=== PATIENT | female | born 1935 | race Caucasian/White ===

== ENCOUNTER 2016-12-17 14:44 | Inpatient (IN) | payer MEDICAID ==
[2016-12-17 14:48] VITALS: BMI 35.4
--- NOTE | 2016-12-17 15:56 | ED PDOC ---
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 No head trauma. No chest pain. No dyspnea. No vomiting. Past Medical History - Infectious Disease Hx of Infectious Diseases: None - Tetanus Immunization Tetanus Immunization: Unknown - Reproductive Menopause: Yes - Cardiac Hx Cardiac Disorders: Yes Hx Congestive Heart Failure: Yes Hx Hypertension: Yes - Pulmonary Hx Respiratory Disorders: No - Neurological Hx Neurological Disorder: No Hx Dizziness: Yes - HEENT Hx Cataracts: Yes (l eye) - Renal Hx Renal Disorder: No - Endocrine/Metabolic Hx Diabetes Mellitus Type 2: Yes - Hematological/Oncological Hx Blood Disorders: No - Integumentary Other/Comment: ble disclored multiple blisters - Musculoskeletal/Rheumatological Hx Falls: Yes Hx Osteoporosis: Yes Hx Unsteady Gait: Yes - Gastrointestinal Hx Gastrointestinal Disorders: No - Genitourinary/Gynecological Hx Genitourinary Disorders: No - Psychiatric Hx Psychophysiologic Disorder: No Hx Substance Use: No - Past Surgical History Past Surgical History: No Previous - Surgical History Other/Comment: endoscopy - Anesthesia Hx Anesthesia: No Hx Anesthesia Reactions: No Hx Malignant Hyperthermia: No - Suicidal Assessment Feels Threatened In Home Enviroment: No Family/Social History - Physician Review Nursing Documentation Reviewed: Yes Family/Social History: Unknown Family HX Smoking Status: Never Smoked Hx Alcohol Use: No Hx Substance Use: No Hx Substance Use Treatment: No Allergies/Home Meds Allergies/Adverse Reactions: Allergies No Known Allergies Allergy (Verified 10/19/13 19:43) Review of Systems - Physician Review All systems were reviewed & negative as marked: Yes - Review of Systems Constitutional: Fatigue Respiratory: absent: SOB Cardiovascular: absent: Chest Pain Gastrointestinal: absent: Abdominal Pain Neurological: Dizziness. absent: Headache Physical Exam Vital Signs Temp Pulse Resp BP Pulse Ox 12/17/16 15:30 98.5 F 66 18 123/74 96 Temperature: Afebrile Blood Pressure: Normal Pulse: Regular Respiratory Rate: Normal Appearance: Positive for: Well-Appearing, Non-Toxic, Uncomfortable, Other (Obese ) Pain Distress: Moderate Mental Status: Positive for: other (Awake alert and cooperative) - Systems Exam Head: Present: Atraumatic, Normocephalic Pupils: Present: PERRL Extroacular Muscles: Present: EOMI Conjunctiva: Present: Normal Mouth: Present: Moist Mucous Membranes Pharnyx: No: ERYTHEMA, EXUDATE, TONSILS ENLARGED Neck: Present: Normal Range of Motion. No: MIDLINE TENDERNESS, Paraspinal Tenderness Respiratory/Chest: Present: Clear to Auscultation, Good Air Exchange, Decreased Breath Sounds. No: Respiratory Distress, Accessory Muscle Use Cardiovascular: Present: Regular Rate and Rhythm, Normal S1, S2. No: Murmurs Abdomen: Present: Normal Bowel Sounds. No: Tenderness, Distention, Peritoneal Signs, Rebound, Guarding Back: Present: Normal Inspection. No: Midline Tenderness, Paraspinal Tenderness Upper Extremity: Present: NORMAL PULSES, Tenderness, Swelling, Neurovascularly Intact, Other (Right elbow pain and tenderness and limited range of motion with swelling). No: Normal ROM, Erythema, Deformity Lower Extremity: Present: Normal Inspection. No: Edema Neurological: Present: GCS=15, CN II-XII Intact, Speech Normal, Motor Func Grossly Intact Skin: Present: Warm, Dry, Normal Color. No: Rashes Medical Decision Making ED Course and Treatment: 12/17/16 17:09 EKG shows normal sinus rhythm rate approximately [address] or T-wave changes 12/17/16 17:[address]El Moreno who requested CT scan of the elbow and he will be in to see the patient later. CT Right Upper Extremity Without Intravenous Contrast, Elbow FINDINGS: Bones/joints: There is a comminuted fracture of the distal humerus, with involvement of the capitellum, the lateral epicondyle, medial epicondyle, and trochlea. Fractures are also visualized of the coronoid process of the ulna and radial head. An olecranon spur is visualized. There is displacement of fracture fragments involving the distal humerus. No dislocation. Soft tissues: There is soft tissue swelling posterior to the elbow. IMPRESSION: 1. There is a comminuted fracture of the distal humerus, with involvement of the capitellum, the lateral epicondyle, medial epicondyle, and trochlea. Fractures are also visualized of the coronoid process of the ulna and radial head. 2. Additional findings described above. Dictated and Authenticated by: Jm Houston MD 12/17/2016 8:09 PM Eastern Time ([place] & [place]) - Lab Interpretations Lab Results: 12/17/16 16:46 12/17/16 16:46 Lab Results 12/17/16 16:54: Urine Color Yellow, Urine Appearance Clear, Urine pH 7.0, Ur Specific [place] <= 1.005, Urine Protein Negative, Urine Glucose (UA) >=1000, Urine Ketones Negative, Urine Blood Negative, Urine Nitrate Negative, Urine Bilirubin Negative, Urine Urobilinogen 0.2, Ur Leukocyte Esterase Negative 12/17/16 16:46: Sodium 138, Potassium 3.4 L, Chloride 99, Carbon Dioxide 30, Anion Gap 12, BUN 17, Creatinine 0.8, Est GFR ( Amer) > 60, Est GFR (Non- Af Amer) > 60, Random Glucose 168 H, Calcium 9.2, Phosphorus 4.1, Magnesium 2.2 , Total Bilirubin 0.9, AST 29, ALT 27, Alkaline Phosphatase 105, Lactate Dehydrogenase 466, Total Creatine Kinase 78, Troponin I < 0.01, Total Protein 7.6, Albumin 3.8, Globulin 3.8, Albumin/Globulin Ratio 1.0 L 12/17/16 16:46: PT 10.4, INR 0.96, APTT 25.9 12/17/16 16:46: WBC 9.2 D, RBC 4.75, Hgb 13.0, Hct 39.9, MCV 84.0, MCH 27.4, MCHC 32.6, RDW 16.5 H, Plt Count 229, MPV 9.0, Gran % 74.6 H, Lymph % (Auto) 18.8 L, [place] % (Auto) 6.0, Eos % (Auto) 0.4 L, Baso % (Auto) 0.2, Gran # 6.85 H , Lymph # 1.7, [place] # 0.6, Eos # 0.0, Baso # 0.02 - RAD Interpretation Radiology Orders: 12/17/16 15:56 HEAD W/O CONTRAST [CT] Stat 12/17/16 15:57 ELBOW RIGHT 3 VIEWS ROUTINE [RAD] Stat 12/17/16 15:58 CHEST ONE VIEW [RAD] Stat - Medication Orders Current Medication Orders: Sodium Chloride (Sodium Chloride 0.9%) 1,000 mls @ 75 mls/hr IV .[id number] FILIBERTO Pantoprazole Sodium (Protonix Ec Tab) 40 mg PO ACB FILIBERTO Discontinued Medications Morphine Sulfate (Morphine) 4 mg IVP STAT STA Stop: 12/17/16 15:59 Last Admin: 12/17/16 16:48 Dose: 4 mg Ondansetron HCl (Zofran Inj) 4 mg IVP ONCE ONE Stop: 12/17/16 15:59 Last Admin: 12/17/16 16:49 Dose: 4 mg Disposition/Present on Arrival - Present on Arrival Any Indicators Present on Arrival: No History of DVT/PE: No History of Uncontrolled Diabetes: Yes Urinary Catheter: No History of Decub. Ulcer: No History Surgical Site Infection Following: None - Disposition Have Diagnosis and Disposition been Completed?: Yes Diagnosis: Dizziness, Syncope, Supracondylar fracture of humerus Disposition: HOSPITALIZED Disposition Time: 17:42 Patient Plan: Admission, Telemetry Patient Problems: Current Active Problems Problem Status Onset Dizziness Acute Supracondylar fracture of humerus Acute Syncope Acute Condition: FAIR
[2016-12-17] MEDS ORDERED: Morphine 4 mg/ml ISec IVP STA (15:58)
[2016-12-17 17:15] LABS: BASO # 0.02 K/mm3 (0.0-2.0); BASO % 0.2 % (0.0-3.0); EOS % 0.4 % (1.5-5.0); GRAN # 6.85 (1.4-6.5); GRAN % 74.6 % (50.0-68.0); LYMPH # 1.7 (1.2-3.4); LYMPH % 18.8 % (22.0-35.0); MEAN CORPUSCULAR HEMOGLOBIN 27.4 pg (25.0-35.0); MEAN CORPUSCULAR HGB CONC 32.6 g/dl (31.0-37.0); MONO # 0.6 (0.1-0.6); PLATELET COUNT 229 10^3/uL (120.0-450.0); RBC 4.75 10^6/uL (3.5-6.1); RED CELL DISTRIBUTION WIDTH 16.5 % (11.5-14.5); WHITE BLOOD COUNT 9.2 10^3/ul (4.5-11.0)
[2016-12-17 17:26] LABS: INR 0.96 (0.93-1.08); PARTIAL THROMBOPLASTIN TIME 25.9 Seconds (23.7-30.8); PROTHROMBIN TIME 10.4 Seconds (9.9-11.8)
[2016-12-17 17:27] LABS: URINE APPEARANCE CLEAR (CLEAR); URINE BILIRUBIN NEGATIVE (NEGATIVE); URINE BLOOD NEGATIVE (NEGATIVE); URINE COLOR YELLOW (YELLOW); URINE GLUCOSE (UA) >=1000 mg/dL (NEGATIVE); URINE LEUKOCYTE ESTERASE NEGATIVE Leu/uL (NEGATIVE); URINE NITRATE NEGATIVE (NEGATIVE); URINE PROTEIN NEGATIVE mg/dL (<30 mg/dL); URINE UROBILINOGEN 0.2 E.U./dL (<1 E.U./dL)
--- NOTE | 2016-12-17 17:35 | CT ---
PROCEDURE: CT HEAD WITHOUT CONTRAST. HISTORY: dizzy COMPARISON: Noncontrast head CT performed 05/31/16 TECHNIQUE: Axial computed tomography images were obtained through the head/brain without intravenous contrast. Radiation dose: Total exam DLP = 765.19 mGy-cm. This CT exam was performed using one or more of the following dose reduction techniques: Automated exposure control, adjustment of the mA and/or kV according to patient size, and/or use of iterative reconstruction technique. FINDINGS: HEMORRHAGE: No intracranial hemorrhage. BRAIN: No mass effect or edema. 6 mm hypodensity in the right cerebellum, favored to reflect chronic lacunar infarct. Mild scattered periventricular and subcortical white matter hypodensities, which are nonspecific, but often seen with chronic microvascular ischemic disease. Please note that MRI with diffusion imaging is more sensitive in the detection of acute ischemic event. VENTRICLES: No hydrocephalus. CALVARIUM: Unremarkable. PARANASAL SINUSES: Unremarkable as visualized. No significant inflammatory changes. MASTOID AIR CELLS: Unremarkable as visualized. No inflammatory changes. OTHER FINDINGS: None. IMPRESSION: Generalized atrophy. Nonspecific white matter changes. 6 mm hypodensity within the right cerebellum, favored to reflect chronic lacunar infarct.
[2016-12-17 17:44] LABS: ALBUMIN 3.8 g/dL (3.0-4.8); ALT/SGPT 27 U/L (7-56); AST/SGOT 29 U/L (15-39); BLOOD UREA NITROGEN 17 mg/dL (7-21); CALCIUM 9.2 mg/dL (8.4-10.5); GFR AFRICAN-AMERICAN > 60; GFR NON-AFRICAN AMERICAN > 60; MAGNESIUM 2.2 mg/dL (1.7-2.2)
[2016-12-17 17:59] LABS: TROPONIN I < 0.01 ng/mL
--- NOTE | 2016-12-17 18:49 | CP.PCM.HP ---
<Javier Dhillon - Last Filed: 12/18/16 06:11> History of Present Illness - History of Present Illness History of Present Illness: Patient is a 81 year old German only speaking female with a PMHx of CHF, pulmonary hypertension, hypertension, hyperlipidemia, diabetes, and osteoporosis who presents to the ED for evaluation of feeling dizzy and a subsequent fall onto her right arm. Language line was used to communicate with patient. She states that she felt dizziness this AM when ambulating with her walker and subsequently fell onto her right arm. She denies LOC or trauma to the head. Admits that she has experienced dizziness in the past but has never lead to a fall. Currently feels dizzy with associated nausea. Also admits to associated dull pain localized to the right upper extremity. Denies fever, chills, chest pain, SOB, abdominal pain, vomiting, diarrhea, constipation, and urinary symptoms. PMHx: CHF, pulmonary hypertension, hypertension, hyperlipidemia, diabetes, and osteoporosis PSHx: none Social Hx: denies ETOH use, tobacco use, and illicit drug use Allergies: none Family Hx: noncontributory Medications: Please see med rec Present on Admission - Present on Admission Any Indicators Present on Admission: No Review of Systems - Review of Systems Review of Systems: Please see HPI Past Patient History - Infectious Disease Hx of Infectious Diseases: None - Tetanus Immunizations Tetanus Immunization: Unknown - Past Social History Smoking Status: Never Smoked - CARDIAC Hx Cardiac Disorders: Yes Hx Congestive Heart Failure: Yes Hx Hypertension: Yes - PULMONARY Hx Respiratory Disorders: No - NEUROLOGICAL Hx Neurological Disorder: No Hx Dizziness: Yes - HEENT Hx Cataracts: Yes (l eye) - RENAL Hx Chronic Kidney Disease: No - ENDOCRINE/METABOLIC Hx Diabetes Mellitus Type 2: Yes - HEMATOLOGICAL/ONCOLOGICAL Hx Blood Disorders: No - INTEGUMENTARY Other/Comment: ble disclored multiple blisters - MUSCULOSKELETAL/RHEUMATOLOGICAL Hx Falls: Yes Hx Osteoporosis: Yes Hx Unsteady Gait: Yes - GASTROINTESTINAL Hx Gastrointestinal Disorders: No - GENITOURINARY/GYNECOLOGICAL Hx Genitourinary Disorders: No - PSYCHIATRIC Hx Psychophysiologic Disorder: No Hx Substance Use: No - SURGICAL HISTORY Other/Comment: endoscopy - ANESTHESIA Hx Anesthesia: No Hx Anesthesia Reactions: No Hx Malignant Hyperthermia: No Meds Allergies/Adverse Reactions: Allergies Allergy/AdvReac Type Severity Reaction Status Date / Time No Known Allergies Allergy Verified 10/19/13 19:43 Physical Exam - Head Exam Head Exam: ATRAUMATIC, NORMAL INSPECTION - Eye Exam Eye Exam: EOMI, Normal appearance - Neck Exam Neck exam: Positive for: Normal Inspection - Respiratory Exam Respiratory Exam: Accessory Muscle Use, NORMAL BREATHING PATTERN. absent: Rales , Rhonchi, Wheezes - Cardiovascular Exam Cardiovascular Exam: REGULAR RHYTHM, +S1, +S2 - GI/Abdominal Exam GI & Abdominal Exam: Soft. absent: Distended, Guarding, Rigid, Tenderness - Extremities Exam Additional comments: mild tenderness to palpation left lower extremity - Neurological Exam Neurological exam: CN II-XII Intact, Oriented x3 Additional comments: patient is awake, alert, responds to verbal stimuli, answers questions appropriately patient is able to move left upper extremity and bilateral lower extremities past midline right upper extremity is currently in a sling is immobile - Skin Skin Exam: Normal Color, Warm Results - Vital Signs Recent Vital Signs: Last Vital Signs Temp 98.5 F 12/17/16 15:30 Pulse 66 12/17/16 15:30 Resp 18 12/17/16 15:30 BP 123/74 12/17/16 15:30 Pulse Ox 96 12/17/16 15:30 - Labs Result Diagrams: 12/17/16 16:46 12/17/16 16:46 Labs: Laboratory Results - last 24 hr 12/17/16 12/17/16 12/17/16 16:46 16:46 16:46 WBC 9.2 D RBC 4.75 Hgb 13.0 Hct 39.9 MCV 84.0 MCH 27.4 MCHC 32.6 RDW 16.5 H Plt Count 229 MPV 9.0 Gran % 74.6 H Lymph % (Auto) 18.8 L [place] % (Auto) 6.0 Eos % (Auto) 0.4 L Baso % (Auto) 0.2 Gran # 6.85 H Lymph # 1.7 [place] # 0.6 Eos # 0.0 Baso # 0.02 PT 10.4 INR 0.96 APTT 25.9 Sodium 138 Potassium 3.4 L Chloride 99 Carbon Dioxide 30 Anion Gap 12 BUN 17 Creatinine 0.8 Est GFR ( Amer) > 60 Est GFR (Non-Af Amer) > 60 Random Glucose 168 H Calcium 9.2 Phosphorus 4.1 Magnesium 2.2 Total Bilirubin 0.9 AST 29 ALT 27 Alkaline Phosphatase 105 Lactate Dehydrogenase 466 Total Creatine Kinase 78 Troponin I < 0.01 Total Protein 7.6 Albumin 3.8 Globulin 3.8 Albumin/Globulin Ratio 1.0 L Urine Color Urine Appearance Urine pH Ur Specific [place] Urine Protein Urine Glucose (UA) Urine Ketones Urine Blood Urine Nitrate Urine Bilirubin Urine Urobilinogen Ur Leukocyte Esterase 12/17/16 16:54 WBC RBC Hgb Hct MCV MCH MCHC RDW Plt Count MPV Gran % Lymph % (Auto) [place] % (Auto) Eos % (Auto) Baso % (Auto) Gran # Lymph # [place] # Eos # Baso # PT INR APTT Sodium Potassium Chloride Carbon Dioxide Anion Gap BUN Creatinine Est GFR ( Amer) Est GFR (Non-Af Amer) Random Glucose Calcium Phosphorus Magnesium Total Bilirubin AST ALT Alkaline Phosphatase Lactate Dehydrogenase Total Creatine Kinase Troponin I Total Protein Albumin Globulin Albumin/Globulin Ratio Urine Color Yellow Urine Appearance Clear Urine pH 7.0 Ur Specific [place] <= 1.005 Urine Protein Negative Urine Glucose (UA) >=1000 Urine Ketones Negative Urine Blood Negative Urine Nitrate Negative Urine Bilirubin Negative Urine Urobilinogen 0.2 Ur Leukocyte Esterase Negative Assessment & Plan - Assessment and Plan (Free Text) Assessment: Patient is a 81 year old German speaking female with a PMHx CHF, pulmonary hypertension, hypertension, hyperlipidemia, diabetes, and osteoporosis who is being admitted to the hospital for evaluation and treatment of dizziness, syncope, and supracondylar fracture of humerus. 1. Dizziness, Fall - high risk fall precautions - head CT- no intracranial hemorrhage, Generalized atrophy. Nonspecific white matter changes. 6 mm hypodensity within the right cerebellum, favored to reflect chronic lacunar infarct. - neuro checks q4 - NPO - IVF NS @ 75 2. Supracondylar fracture of the humerus - orthopedic consult - tylenol for pain managment - CT of right upper extremity ordered by ED and is read is pending at time of admit 3. Hypertension - hold home losartan - hold home lasix as patient is NPO - hold home HCTZ/bisoprol - place patient on metoprolol 25 mg PO 1 tab BID 4. Diabetes - hold home oral antidiabetic medications - accu checks ACHS - insulin sliding scale - HbA1c 5. Hyperlipidemia - lipid profile 6. Hypokalemia - replete - monitor closely via BMP 7. Hx of Diastolic CHF, pulmonary hypertension - ECHO 8. PPX - SCD - Protonix <Roosevelt Lopez P - Last Filed: 12/18/16 06:22> Results - Vital Signs Recent Vital Signs: Last Vital Signs Temp 98.2 F 12/18/16 06:00 Pulse 62 12/18/16 06:00 Resp 20 12/18/16 06:00 BP 104/59 L 12/18/16 06:00 Pulse Ox 95 12/18/16 00:01 - Labs Result Diagrams: 12/17/16 16:46 12/17/16 16:46 Attending/Attestation - Attestation I have personally seen and examined this patient.: Yes I have fully participated in the care of the patient.: Yes I have reviewed all pertinent clinical information: Yes Notes (Text): 12/18/16 06:22 81 F with h/o diastolic chf, pulm htn, , TR, type to DM on OHA fell and had closed right supracondylar fracture with intact neurovaslcular function, sp splint. Dr. Tomlin consulted in ER for the farcture. Plan Stable vitals, orthopedic eval for plan for right supracondylar faracture, currently kept NPO except meds, continue betablocker, echo as last one more then 6 months back, hold on oha as pt is npo, dvt/gi prophylaxis
--- NOTE | 2016-12-17 20:09 | CT ---
EXAM: CT Right Upper Extremity Without Intravenous Contrast, Elbow CLINICAL HISTORY: The patient age is 81 years old and is female; Injury or trauma; Fall; Initial encounter; Fracture, traumatic injury; Closed fracture; Elbow; Right; Additional info: Elbow fracture Facility exam id and description: Ct extupsr ext upper w/o contrast right TECHNIQUE: Axial computed tomography images of the right elbow without intravenous contrast. This CT exam was performed using one or more of the following dose reduction techniques: automated exposure control, adjustment of the mA and/or kV according to patient size, and/or use of iterative reconstruction technique. Coronal reformatted images were created and reviewed. EXAM DATE/TIME: 12/17/2016 5:41 PM COMPARISON: DX - ELBOW RIGHT 3 VIEWS ROUTINE 12/17/2016 5:13:33 PM FINDINGS: Bones/joints: There is a comminuted fracture of the distal humerus, with involvement of the capitellum, the lateral epicondyle, medial epicondyle, and trochlea. Fractures are also visualized of the coronoid process of the ulna and radial head. An olecranon spur is visualized. There is displacement of fracture fragments involving the distal humerus. No dislocation. Soft tissues: There is soft tissue swelling posterior to the elbow. IMPRESSION: 1. There is a comminuted fracture of the distal humerus, with involvement of the capitellum, the lateral epicondyle, medial epicondyle, and trochlea. Fractures are also visualized of the coronoid process of the ulna and radial head. 2. Additional findings described above.
[2016-12-17] MEDS ORDERED: Potassium Chloride 20 mEq ER Tab PO STA (21:34)
[2016-12-17] MEDS: Sodium Chloride 0.9% 1,000 ML IV SCH (21:54)
[2016-12-18 07:49] LABS: ALBUMIN 3.4 g/dL (3.0-4.8); ALT/SGPT 22 U/L (7-56); AST/SGOT 24 U/L (15-39); BLOOD UREA NITROGEN 16 mg/dL (7-21); CALCIUM 9.1 mg/dL (8.4-10.5); GFR AFRICAN-AMERICAN > 60; GFR NON-AFRICAN AMERICAN > 60
[2016-12-18 07:52] LABS: HDL CHOLESTEROL 37 mg/dL (29-60); LDL CHOLESTEROL 102 mg/dL (0-129)
[2016-12-18 07:53] LABS: BASO # 0.01 K/mm3 (0.0-2.0); BASO % 0.1 % (0.0-3.0); EOS # 0.1 (0.0-0.7); EOS % 1.5 % (1.5-5.0); GRAN # 4.89 (1.4-6.5); GRAN % 68.8 % (50.0-68.0); HEMOGLOBIN 12.2 gm/dL (12.0-16.0); LYMPH # 1.5 (1.2-3.4); LYMPH % 21.6 % (22.0-35.0); MEAN CELL VOLUME 85.1 fL (80.0-105.0); MEAN CORPUSCULAR HEMOGLOBIN 27.5 pg (25.0-35.0); MEAN CORPUSCULAR HGB CONC 32.3 g/dl (31.0-37.0); MONO # 0.6 (0.1-0.6); PLATELET COUNT 216 10^3/uL (120.0-450.0); RBC 4.44 10^6/uL (3.5-6.1); RED CELL DISTRIBUTION WIDTH 16.9 % (11.5-14.5); WHITE BLOOD COUNT 7.1 10^3/ul (4.5-11.0)
[2016-12-18] MEDS: Pantoprazole 40 mg EC Tab PO SCH (08:04)
--- NOTE | 2016-12-18 08:45 | RAD ---
PROCEDURE: CHEST RADIOGRAPH, 1 VIEW HISTORY: dizzy COMPARISON: 05/31/2016 FINDINGS: LUNGS: Clear. PLEURA: No pneumothorax or pleural fluid seen. CARDIOVASCULAR: Mild cardiomegaly OSSEOUS STRUCTURES: No significant abnormalities. VISUALIZED UPPER ABDOMEN: Normal. OTHER FINDINGS: None. IMPRESSION: No active disease.
--- NOTE | 2016-12-18 08:47 | RAD ---
PROCEDURE: Radiographs of the right elbow. HISTORY: trauma COMPARISON: No prior. FINDINGS: BONES: There is a comminuted displaced supracondylar fracture JOINTS: Normal. No osteoarthritis. SOFT TISSUES: Normal. JOINT EFFUSION: None. OTHER FINDINGS: None. IMPRESSION: Comminuted displaced supracondylar fracture
--- NOTE | 2016-12-18 09:25 | CP.PCM.CON ---
History of Present Illness - History of Present Illness History of Present Illness: Mrs. Alicea is an 81-year-old woman with multiple medical co-morbidities, inluding CHF, pulmonary hypertension, hypertension, hyperlipidemia, diabetes, and arthritis, who presented to the ED after suffering a fall resulting in fracture of her right arm. She states that she felt dizzy, light-headed and had a spinning sensation prior to the fall. CT scan of the head showed a chronic right cerebellar lacunar infarct. She complained of pain of her right arm, but denied current dizziness, vertigo, light-headedness, nausea, chest pain , SOB, weakness, sensory changes or other associated symptoms. Review of Systems - Review of Systems All systems: reviewed and no additional remarkable complaints except Past Patient History - Infectious Disease Hx of Infectious Diseases: None - Tetanus Immunizations Tetanus Immunization: Unknown - Past Social History Smoking Status: Never Smoked - CARDIAC Hx Cardiac Disorders: Yes Hx Congestive Heart Failure: Yes Hx Hypertension: Yes - PULMONARY Hx Respiratory Disorders: No - NEUROLOGICAL Hx Neurological Disorder: No Hx Dizziness: Yes - HEENT Hx Cataracts: Yes (l eye) - RENAL Hx Chronic Kidney Disease: No - ENDOCRINE/METABOLIC Hx Diabetes Mellitus Type 2: Yes - HEMATOLOGICAL/ONCOLOGICAL Hx Blood Disorders: No - INTEGUMENTARY Other/Comment: ble disclored multiple blisters - MUSCULOSKELETAL/RHEUMATOLOGICAL Hx Falls: Yes Hx Osteoporosis: Yes Hx Unsteady Gait: Yes - GASTROINTESTINAL Hx Gastrointestinal Disorders: No - GENITOURINARY/GYNECOLOGICAL Hx Genitourinary Disorders: No - PSYCHIATRIC Hx Psychophysiologic Disorder: No Hx Substance Use: No - SURGICAL HISTORY Other/Comment: endoscopy - ANESTHESIA Hx Anesthesia: No Hx Anesthesia Reactions: No Hx Malignant Hyperthermia: No Meds Allergies/Adverse Reactions: Allergies Allergy/AdvReac Type Severity Reaction Status Date / Time No Known Allergies Allergy Verified 10/19/13 19:43 - Medications Medications: Current Medications Acetaminophen (Tylenol 325mg Tab) 650 mg PO Q6H PRN PRN Reason: Pain, moderate (4-7) Last Admin: 12/17/16 23:45 Dose: 650 mg Sodium Chloride (Sodium Chloride 0.9%) 1,000 mls @ 75 mls/hr IV .[id number] [facility] Last Admin: 12/17/16 21:54 Dose: 75 mls/hr Metoprolol Tartrate (Lopressor) 25 mg PO BID [facility] Pantoprazole Sodium (Protonix Ec Tab) 40 mg PO ACB [facility] Last Admin: 12/18/16 08:04 Dose: 40 mg Physical Exam - Constitutional Appears: Well - Head Exam Head Exam: ATRAUMATIC, NORMAL INSPECTION, NORMOCEPHALIC - Eye Exam Eye Exam: EOMI, Normal appearance, PERRL - ENT Exam ENT Exam: Mucous Membranes Moist, Normal Exam - Neck Exam Neck exam: Positive for: Normal Inspection - Respiratory Exam Respiratory Exam: Clear to Auscultation Bilateral, NORMAL BREATHING PATTERN - Cardiovascular Exam Cardiovascular Exam: REGULAR RHYTHM, +S1, +S2 - GI/Abdominal Exam GI & Abdominal Exam: Normal Bowel Sounds, Soft. absent: Tenderness - Rectal Exam Rectal Exam: Deferred - Extremities Exam Extremities exam: Positive for: tenderness Additional comments: right arm is in a cast and immobilized - Back Exam Back exam: NORMAL INSPECTION - Neurological Exam Neurological exam: Alert, CN II-XII Intact, Oriented x3, Reflexes Normal - Expanded Neurological Exam Expanded Patient oriented to: person, place, time Cranial nerves: EOM's Intact: Normal, Facial Sensation: Normal, Gag Reflex: Normal Ataxia: No Cerebellar Function: Finger to Nose: Normal, Abnormal Right (unable to test the right side due to fracture of arm), Heel to Monet: Normal Upper motor neuron: Babinski Sign: Normal Sensory exam: Lower Extremity Light Touch: Normal, Lower Extremity Pin Prick: Normal, Upper Extremity Light Touch: Normal (right side not tested), Upper Extremity Pin Prick: Normal (right sided not tested) Neuro motor strength exam: Left Upper Extremity: 5, Right Upper Extremity: 2/1, Left Lower Extremity: 5, Right Lower Extremity: 5 DTR: Achilles Tendon Left: 2+, Achilles Tendon Right: 2+, Bicep Left: 2+, Patellar Left: 2+, Patellar Right: 2+ - Psychiatric Exam Psychiatric exam: Normal Affect, Normal Mood Results - Vital Signs Recent Vital Signs: Last Vital Signs Temp 98.2 F 12/18/16 06:00 Pulse 62 12/18/16 06:00 Resp 20 12/18/16 06:00 BP 104/59 L 12/18/16 06:00 Pulse Ox 95 12/18/16 00:01 - Labs Result Diagrams: 12/18/16 06:40 12/18/16 07:00 Labs: Laboratory Results - last 24 hr 12/18/16 12/18/1617 06:40 07:00 07:00 WBC 7.1 D RBC 4.44 Hgb 12.2 Hct 37.8 MCV 85.1 MCH 27.5 MCHC 32.3 RDW 16.9 H Plt Count 216 MPV 9.0 Gran % 68.8 H Lymph % (Auto) 21.6 L Morehouse % (Auto) 8.0 H Eos % (Auto) 1.5 Baso % (Auto) 0.1 Gran # 4.89 Lymph # 1.5 Morehouse # 0.6 Eos # 0.1 Baso # 0.01 Sodium 142 Potassium 3.4 L Chloride 103 Carbon Dioxide 30 Anion Gap 12 BUN 16 Creatinine 0.8 Est GFR ( Amer) > 60 Est GFR (Non-Af Amer) > 60 Random Glucose 125 H Calcium 9.1 Total Bilirubin 1.0 AST 24 ALT 22 Alkaline Phosphatase 91 Total Protein 6.8 Albumin 3.4 Globulin 3.4 Albumin/Globulin Ratio 1.0 L Triglycerides 108 Cholesterol 187 LDL Cholesterol Direct 102 HDL Cholesterol 37 - Imaging and Cardiology CT scan - head Status: Image reviewed by me, Report reviewed by me (Chronic right cerebellar lacunar infarct) Assessment & Plan (1) Dizziness Assessment and Plan: The patient may have actual vertigo, or vertebro-basilar insufficiency. This is considered since the patient has a chronic right cerebellar infarct. I recommend obtaining a CTA of the head/neck and an MRI of the brain for further evaluation. The patient takes Plavix at home, I recommend adding aspirin 81 mg daily. Her LDL was slightly elevated. I recommend starting a statin. Continue adequate hydration to maintain cerebral perfusion. DVT Px. PT/OT. Will follow up on cardiac work-up. Status: Acute Priority: High
[2016-12-18] MEDS ORDERED: Potassium Chloride 20 mEq ER Tab PO ONE (11:04)
[2016-12-18] MEDS ORDERED: Iodixanol 320 mg/ml 150 ml Bottle IV ONE (11:53)
--- NOTE | 2016-12-18 12:04 | MRI ---
PROCEDURE: MRI BRAIN WITHOUT CONTRAST HISTORY: cerebellar stroke COMPARISON: Head CT dated 12/17/2016. TECHNIQUE: Multiplanar, multisequence MR images of the brain were obtained without intravenous contrast enhancement. FINDINGS: HEMORRHAGE: None DWI: No evidence of an acute or early subacute infarction. BRAIN PARENCHYMA: Periventricular matter changes are identified diffusely which are suggestive of chronic microangiopathy. Limited expansion of ventricular sulcal sternal spaces appreciated with mild diffuse cerebral atrophy. No cortical edema is identified. There is no mass effect. VENTRICLES: Unremarkable. No hydrocephalus. CRANIUM: Unremarkable. ORBITS: Grossly unremarkable. PARANASAL SINUSES/MASTOIDS: Clear VASCULAR SYSTEM: Skull base flow voids intact. OTHER FINDINGS: None. IMPRESSION: Limited age-related neuro degenerative changes (age-appropriate) are identified without acute intracranial findings as discussed above. No definite acute intracranial findings.
--- NOTE | 2016-12-18 15:01 | CT ---
PROCEDURE: CT Angiography of the neck with contrast HISTORY: cerebellar stroke COMPARISON: None available. TECHNIQUE: Contiguous axial images of the neck were obtained from the level of the skull-base to the superior mediastinum in the arteriographic phase of enhancement. Coronal and sagittal reformats or also generated. This CT exam was performed using one or more of the following dose reduction techniques: Automated exposure control, adjustment of the mA and/or kV according to patient size, and/or use of iterative reconstruction technique. Intravenous contrast dose: 150 cc of Visipaque 320 Radiation dose: Total exam DLP = 405 mGy-cm. FINDINGS: RIGHT CAROTID ARTERIES: Common Carotid Artery: Normal. Carotid Bifurcation: There is severe tortuosity of the right carotid which extends to the midline in the retropharyngeal space. Heavily calcified plaque is seen. There is a mild degree of stenosis probably less than 60 percent. Internal Carotid Artery:Normal. External Carotid Artery (proximal branches): Normal. LEFT CAROTID ARTERIES: Common Carotid Artery: Normal. Carotid Bifurcation: Normal. Internal Carotid Artery:Calcified plaque is seen in the proximal internal carotid. There is no significant stenosis. There is severe tortuosity External Carotid Artery (proximal branches): Normal. VERTEBRAL ARTERIES: Right Vertebral Artery: Normal. Left Vertebral Artery: Normal. 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 Calcified plaque in the bifurcations without significant stenosis
--- NOTE | 2016-12-18 15:08 | CT ---
PROCEDURE: CT Angiography of the Brain. HISTORY: cerebellar stroke COMPARISON: None available. TECHNIQUE: CT angiography of the intracranial arteries was performed. Coronal and sagittal maximum intensity projection reformated images were generated. This CT exam was performed using one or more of the following dose reduction techniques: Automated exposure control, adjustment of the mA and/or kV according to patient size, and/or use of iterative reconstruction technique. Intravenous contrast dose: 150 cc of Visipaque 320 in total for neck and head study Radiation dose: Total exam DLP = 84 mGy-cm. FINDINGS: INTERNAL CEREBRAL ARTERIES: Unremarkable. The skull base, petrous, cavernous and supraclinoid segments are bilaterally widely patient. Calcification of the intra cavernous portions ANTERIOR CEREBRAL ARTERIES: Unremarkable. A1 and A2 segments are widely patent. Smaller distal branches unremarkable, as visualized. MIDDLE CEREBRAL ARTERIES: Unremarkable. M1 and M2 segments are widely patent. Perisylvian branches grossly symmetric. POSTERIOR CIRCULATION: Basilar Artery: There is tortuosity of the basilar artery Distal Vertebral Arteries: Unremarkable. Posterior Cerebral Arteries: Unremarkable. Posterior Inferior Cerebellar Arteries: Unremarkable. ANEURYSM/ VASCULAR MALFORMATIONS: None. OTHER FINDINGS: None. IMPRESSION: No evidence of stenosis or occlusion
--- NOTE | 2016-12-18 16:44 | CP.PCM.PN ---
<SETH FONG - Last Filed: 12/18/16 17:34> Subjective - Date & Time of Evaluation Date of Evaluation: 12/18/16 Time of Evaluation: 10:45 - Subjective Subjective: patient was seen and examined bedside. denies any discomfort, chest pain, shortness of breath, fevers, headaches. states that she had felt dizzy and fell , but did not trip over something. Also denies LOC during the fall. Objective - Vital Signs/Intake and Output Vital Signs (last 24 hours): Temp Pulse Resp BP Pulse Ox 98.6 F 68 20 110/50 L 95 12/18/16 14:15 12/18/16 14:15 12/18/16 14:15 12/18/16 14:15 12/18/16 00:01 Intake and Output: 12/18/16 12/18/16 06:59 18:59 Intake Total 945 Output Total 1400 Balance -455 - Medications Medications: Current Medications Acetaminophen (Tylenol 325mg Tab) 650 mg PO Q6H PRN PRN Reason: Pain, moderate (4-7) Last Admin: 12/17/16 23:45 Dose: 650 mg Aspirin (Ecotrin) 81 mg PO DAILY [facility] Last Admin: 12/18/16 09:48 Dose: 81 mg Atorvastatin Calcium (Lipitor) 20 mg PO DIN [facility] Sodium Chloride (Sodium Chloride 0.9%) 1,000 mls @ 75 mls/hr IV .[id number] [facility] Last Admin: 12/17/16 21:54 Dose: 75 mls/hr Metoprolol Tartrate (Lopressor) 25 mg PO BID [facility] Last Admin: 12/18/16 09:48 Dose: 25 mg Pantoprazole Sodium (Protonix Ec Tab) 40 mg PO ACB [facility] Last Admin: 12/18/16 08:04 Dose: 40 mg - Labs Labs: 12/18/16 06:40 12/18/16 07:00 PT 10.4 Seconds (9.9-11.8) 12/17/16 16:46 INR 0.96 (0.93-1.08) 12/17/16 16:46 APTT 25.9 Seconds (23.7-30.8) 12/17/16 16:46 - Constitutional Appears: Well, Non-toxic, No Acute Distress - Head Exam Head Exam: ATRAUMATIC, NORMAL INSPECTION, NORMOCEPHALIC - Eye Exam Eye Exam: EOMI, Normal appearance, PERRL - ENT Exam ENT Exam: Mucous Membranes Moist, Normal Exam - Respiratory Exam Respiratory Exam: Clear to Ausculation Bilateral, NORMAL BREATHING PATTERN. absent: Accessory Muscle Use, Chest Wall Tenderness, Rales, Rhonchi, Wheezes, Respiratory Distress, Stridor - Cardiovascular Exam Cardiovascular Exam: RRR, +S1, +S2. absent: Gallop, Rubs, Murmur - GI/Abdominal Exam GI & Abdominal Exam: Soft, Normal Bowel Sounds. absent: Distended, Tenderness, Organomegaly Additional comments: obese - Neurological Exam Neurological Exam: Alert, Awake, Oriented x3 - Psychiatric Exam Psychiatric exam: Normal Affect, Normal Mood - Skin Skin Exam: Normal Color, Warm. absent: Cyanosis, Pallor Assessment and Plan - Assessment and Plan (Free Text) Plan: Mrs. Alicea is an 81-year-old woman with multiple medical co-morbidities, inluding CHF, pulmonary hypertension, hypertension, hyperlipidemia, diabetes, and arthritis, who presented to the ED after suffering a fall resulting in fracture of her right arm. She states that she felt dizzy, light-headed and had a spinning sensation prior to the fall. 1. Syncope - Pt on tele for close monitoring - CT head showed a chronic right cerebellar lacunar infarct - CTA Head/Neck showed Severely turtuous carotid arteries (R>L), and calcification in bifurcation but no stenosis intracranially - MRI Brain showed age-related degenerative changes but no acute intracranial findings - Troponins neg x1 - Neuro consulted, recs appreciated - Cardio consulted, recs appreciated - PT eval - f/u echo 2. Humerus fracture - UE CT showed comminuted fracture of distal humerus and coronoid process - R arm is splinted - Spoke with Dr. Hakeem Moreno (Ortho), who stated that patient is stable enough to be followed up outpatient w/i 1 week of discharge - pain: tylenol Q6 PRN 3. Hypokalemia - 3.4 - K dur given - f/u CMP tomorrow 3. CHF - clinically asymptomatic 4. HTN - 132/63 currently and no dramatic increases - Lopressor 25 BID 5. HLD - TG 108, LDL 102 - Lipitor 20mg 6. DM2 - A1C 9.1 Diet: HHD PPX: PTX <Gretchen,Anwar A - Last Filed: 12/18/16 22:04> Objective - Vital Signs/Intake and Output Vital Signs (last 24 hours): Temp Pulse Resp BP Pulse Ox 98 F 79 18 132/63 95 12/18/16 18:00 12/18/16 18:28 12/18/16 18:00 12/18/16 18:00 12/18/16 00:01 Intake and Output: 12/18/16 12/19/16 18:59 06:59 Intake Total 945 Output Total 1400 Balance -455 - Medications Medications: Current Medications Acetaminophen (Tylenol 325mg Tab) 650 mg PO Q6H PRN PRN Reason: Pain, moderate (4-7) Last Admin: 12/17/16 23:45 Dose: 650 mg Aspirin (Ecotrin) 81 mg PO DAILY [facility] Last Admin: 12/18/16 09:48 Dose: 81 mg Atorvastatin Calcium (Lipitor) 20 mg PO DIN [facility] Last Admin: 12/18/16 17:44 Dose: 20 mg Sodium Chloride (Sodium Chloride 0.9%) 1,000 mls @ 75 mls/hr IV .[id number] [facility] Last Admin: 12/17/16 21:54 Dose: 75 mls/hr Insulin Human Lispro (Humalog Low) 0 units SC ACHS [facility] PRN Reason: Protocol Metoprolol Tartrate (Lopressor) 25 mg PO BID [facility] Last Admin: 12/18/16 17:44 Dose: 25 mg Pantoprazole Sodium (Protonix Ec Tab) 40 mg PO ACB [facility] Last Admin: 12/18/16 08:04 Dose: 40 mg - Labs Labs: 12/18/16 06:40 12/18/16 07:00 PT 10.4 Seconds (9.9-11.8) 12/17/16 16:46 INR 0.96 (0.93-1.08) 12/17/16 16:46 APTT 25.9 Seconds (23.7-30.8) 12/17/16 16:46 Attending/Attestation - Attestation I have personally seen and examined this patient.: Yes I have fully participated in the care of the patient.: Yes I have reviewed all pertinent clinical information, including history, physical exam and plan: Yes Notes (Text): 12/18/16 21:55 81 year old with past medical history of hypertension, diabetes, CHF, and arthritis who presented with fall/syncope after feeling dizzy at home. She was found to have right arm fracture and admitted for orthopedics evaluation and syncope workup. CT UE showed comminuted fracture of the distal humerus and coronoid process. Her right arm is in splint and sling. Continue with analgesics prn. Ortho was consulted who recommended outpatient follow up. She was seen by neurology for syncope. Workup so far included CT head which showed chronic right cerebellar lacunar infarct, CT neck which showed severely turtuous carotid arteries (R>L) and calcification in bifurcation but no stenosis intracranially, and MRI brain which showed age-related degenerative changes but no acute intracranial findings. Will follow up with neurology recommendations. She is pending echocardiogram and cardiology evaluation. She is also still pending PT evaluation for falls at home. Will replete and repeat potassium. She is on metoprolol for hypertension and insulin ss for diabetes. Can consider resuming home medications if no plan for surgery and patient is eating. Alisha Godinez MD Hospitalist.
--- NOTE | 2016-12-19 00:04 | CARD ---
APPROVED REPORT EKG Measurement Heart [id number] <Conclusion> Normal sinus rhythm Voltage criteria for left ventricular hypertrophy Abnormal ECG
[2016-12-19] MEDS: Insulin Lispro (humaLOG) LOW Coverage SC SCH ×5 (00:38→22:10)
--- NOTE | 2016-12-19 03:42 | CON ---
CARDIOLOGY CONSULTATION DATE: 12/18/2016 HISTORY OF PRESENT ILLNESS: The patient is a 80-year-old woman who presented with a dizzy spell with a fall injury to her right elbow. The patient's past medical history is noted for diabetes mellitus, hypertension, and hyperlipidemia. She denies chest pain. No loss of consciousness was documented. The patient underwent an echocardiogram last year, which shows good LV function, aortic valve sclerosis without stenosis as well as pulmonary hypertension. SOCIAL HISTORY: Unavailable. REVIEW OF SYSTEMS: Unavailable. PHYSICAL EXAMINATION: VITAL SIGNS: Blood pressure is 110/50, and the heart rate is in the 60s. NECK: Negative JVD. LUNGS: Without rales. HEART: Reveals S1 and S2. No murmur noted. LABORATORY DATA: Reveals an EKG that shows normal sinus rhythm with no acute changes. Laboratory reveals troponin that are negative x1. BUN and creatinine are unremarkable. The glucose is 125. The hemoglobin is 12.2. IMPRESSION: 1. Near syncope. 2. No evidence for cardiac cause of syncope. 3. Injury to her right elbow. 4. Diabetes mellitus. 5. Hypertension. 6. Hypercholesterolemia. PLAN: Given these findings, the patient is being evaluated by Neurology. The patient currently has no active cardiac disease. We will monitor on telemetry for 24 hours. Audie Madden MD
[2016-12-19] MEDS: Sodium Chloride 0.9% 1,000 ML IV SCH ×2 (06:46→13:29)
[2016-12-19 07:52] LABS: BASO # 0.01 K/mm3 (0.0-2.0); BASO % 0.1 % (0.0-3.0); EOS # 0.1 (0.0-0.7); EOS % 1.5 % (1.5-5.0); GRAN # 5.57 (1.4-6.5); GRAN % 65.7 % (50.0-68.0); HEMOGLOBIN 12.4 gm/dL (12.0-16.0); LYMPH # 2.1 (1.2-3.4); MEAN CELL VOLUME 85.9 fL (80.0-105.0); MEAN CORPUSCULAR HEMOGLOBIN 27.7 pg (25.0-35.0); MEAN CORPUSCULAR HGB CONC 32.3 g/dl (31.0-37.0); MEAN PLATELET VOLUME 8.8 fl (7.0-11.0); MONO # 0.7 (0.1-0.6); MONO % 7.7 % (1.0-6.0); PLATELET COUNT 213 10^3/uL (120.0-450.0); RBC 4.47 10^6/uL (3.5-6.1); RED CELL DISTRIBUTION WIDTH 16.6 % (11.5-14.5); WHITE BLOOD COUNT 8.5 10^3/ul (4.5-11.0)
[2016-12-19 08:12] LABS: ALBUMIN 3.5 g/dL (3.0-4.8); ALT/SGPT 23 U/L (7-56); AST/SGOT 28 U/L (15-39); BLOOD UREA NITROGEN 14 mg/dL (7-21); CALCIUM 9.1 mg/dL (8.4-10.5); GFR AFRICAN-AMERICAN > 60; GFR NON-AFRICAN AMERICAN > 60
[2016-12-19] MEDS: Pantoprazole 40 mg EC Tab PO SCH (10:44)
--- NOTE | 2016-12-19 13:42 | CP.PCM.PN ---
<SETH FONG - Last Filed: 12/19/16 17:38> Subjective - Date & Time of Evaluation Date of Evaluation: 12/19/16 Time of Evaluation: 10:00 - Subjective Subjective: patient was seen and examined at bedside. She denies any acute changes overnight , denying pain in her arm, chest, abd or legs. states that she is hungry. Objective - Vital Signs/Intake and Output Vital Signs (last 24 hours): Temp Pulse Resp BP Pulse Ox 98.1 F 81 19 142/78 95 12/19/16 06:00 12/19/16 10:44 12/19/16 06:00 12/19/16 10:44 12/19/16 06:00 Intake and Output: 12/19/16 12/19/16 06:59 18:59 Intake Total 2490 Output Total 1700 Balance 790 - Medications Medications: Current Medications Acetaminophen (Tylenol 325mg Tab) 650 mg PO Q6H PRN PRN Reason: Pain, moderate (4-7) Last Admin: 12/19/16 10:44 Dose: 650 mg Aspirin (Ecotrin) 81 mg PO DAILY [facility] Last Admin: 12/19/16 10:44 Dose: 81 mg Atorvastatin Calcium (Lipitor) 20 mg PO DIN [facility] Last Admin: 12/18/16 17:44 Dose: 20 mg Sodium Chloride (Sodium Chloride 0.9%) 1,000 mls @ 75 mls/hr IV .[id number] [facility] Last Admin: 12/19/16 06:46 Dose: 75 mls/hr Insulin Human Lispro (Humalog Low) 0 units SC ACHS [facility] PRN Reason: Protocol Last Admin: 12/19/16 10:43 Dose: 1 units Metoprolol Tartrate (Lopressor) 25 mg PO BID [facility] Last Admin: 12/19/16 10:44 Dose: 25 mg Pantoprazole Sodium (Protonix Ec Tab) 40 mg PO ACB [facility] Last Admin: 12/19/16 10:44 Dose: 40 mg - Labs Labs: 12/19/16 07:30 12/19/16 07:30 PT 10.4 Seconds (9.9-11.8) 12/17/16 16:46 INR 0.96 (0.93-1.08) 12/17/16 16:46 APTT 25.9 Seconds (23.7-30.8) 12/17/16 16:46 - Constitutional Appears: Well, Non-toxic, No Acute Distress - Head Exam Head Exam: ATRAUMATIC, NORMAL INSPECTION, NORMOCEPHALIC - Eye Exam Eye Exam: EOMI, Normal appearance, PERRL. absent: Conjunctival injection, Nystagmus, Periorbital swelling, Periorbital tenderness, Scleral icterus Pupil Exam: NORMAL ACCOMODATION - ENT Exam ENT Exam: Mucous Membranes Moist, Normal Exam - Respiratory Exam Respiratory Exam: Clear to Ausculation Bilateral, NORMAL BREATHING PATTERN. absent: Accessory Muscle Use, Chest Wall Tenderness, Rales, Rhonchi, Wheezes, Respiratory Distress, Stridor - Cardiovascular Exam Cardiovascular Exam: RRR, +S1, +S2. absent: Bradycardia, Tachycardia, Gallop, JVD, Rubs, Murmur - GI/Abdominal Exam GI & Abdominal Exam: Soft, Normal Bowel Sounds. absent: Distended, Guarding, Rigid, Tenderness, Organomegaly - Extremities Exam Extremities Exam: Pedal Edema (+1) - Neurological Exam Neurological Exam: Alert, Awake, Oriented x3. absent: Altered, Motor Sensory Deficit (can wiggle fingers ) Additional comments: sensation intact x4 extremities with no deficits - Psychiatric Exam Psychiatric exam: Normal Affect, Normal Mood - Skin Skin Exam: Normal Color, Warm Additional comments: L arm is in long cast Assessment and Plan - Assessment and Plan (Free Text) Plan: Mrs. Alicea is an 81-year-old woman with multiple medical co-morbidities, inluding CHF, pulmonary hypertension, hypertension, hyperlipidemia, diabetes, and arthritis, who presented to the ED after suffering a fall resulting in fracture of her right arm. She states that she felt dizzy, light-headed and had a spinning sensation prior to the fall. 1. 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 Humerus fracture - UE CT showed comminuted fracture of distal humerus and coronoid process - pt neurologically intact - R arm is splinted - Spoke with Dr. Hakeem Moreno (Ortho) today, plan is still to follow up outpatient w/i 1 week of discharge; will see pt in AM - pain: tylenol Q6 PRN 3. Hypokalemia, resolved - K 4.0 3. CHF - clinically asymptomatic 4. HTN - 148/72 currently and no dramatic increases - Lopressor 25 BID 5. HLD - TG 108, LDL 102 - Lipitor 20mg 6. DM2 - A1C 9.1 - Humalog 4u today Diet: HHD PPX: PTX Patient was seen, discussed and evaluated with attending, Dr. Kale Fong PGY1 <Rozina Henley - Last Filed: 12/19/16 20:21> Objective - Vital Signs/Intake and Output Vital Signs (last 24 hours): Temp Pulse Resp BP Pulse Ox 98.1 F 70 19 148/72 95 12/19/16 06:00 12/19/16 16:59 12/19/16 06:00 12/19/16 16:59 12/19/16 06:00 Intake and Output: 12/19/16 12/20/16 18:59 06:59 Intake Total 4048 Output Total 1700 Balance 2348 - Medications Medications: Current Medications Acetaminophen (Tylenol 325mg Tab) 650 mg PO Q6H PRN PRN Reason: Pain, moderate (4-7) Last Admin: 12/19/16 10:44 Dose: 650 mg Aspirin (Ecotrin) 81 mg PO DAILY [facility] Last Admin: 12/19/16 10:44 Dose: 81 mg Atorvastatin Calcium (Lipitor) 20 mg PO DIN [facility] Last Admin: 12/19/16 16:59 Dose: 20 mg Sodium Chloride (Sodium Chloride 0.9%) 1,000 mls @ 75 mls/hr IV .[id number] [facility] Last Admin: 12/19/16 13:29 Dose: Not Given Insulin Human Lispro (Humalog Low) 0 units SC ACHS [facility] PRN Reason: Protocol Last Admin: 12/19/16 17:00 Dose: 2 units Metoprolol Tartrate (Lopressor) 25 mg PO BID [facility] Last Admin: 12/19/16 16:59 Dose: 25 mg Pantoprazole Sodium (Protonix Ec Tab) 40 mg PO ACB [facility] Last Admin: 12/19/16 10:44 Dose: 40 mg - Labs Labs: 12/19/16 07:30 12/19/16 07:30 PT 10.4 Seconds (9.9-11.8) 12/17/16 16:46 INR 0.96 (0.93-1.08) 12/17/16 16:46 APTT 25.9 Seconds (23.7-30.8) 12/17/16 16:46 Attending/Attestation - Attestation I have personally seen and examined this patient.: Yes I have fully participated in the care of the patient.: Yes I have reviewed all pertinent clinical information, including history, physical exam and plan: Yes Notes (Text): I have seen and examined patient at bedside. Agree with the above note with the following additions/ exceptions: Briefly this is 81 year old with past medical history of hypertension, diabetes, CHF, and arthritis who presented with fall/ syncope after feeling dizzy at home. She was found to have right arm fracture and admitted for orthopedics evaluation and syncope workup. CT UE showed comminuted fracture of the distal humerus and coronoid process. Her right arm is in splint and sling. Continue with analgesics prn. Awaiting ortho consult. She was seen by neurology for syncope. Workup so far included CT head which showed chronic right cerebellar lacunar infarct, CT neck which showed severely tortuous carotid arteries (R>L) and calcification in bifurcation but no stenosis intracranially, and MRI brain which showed age-related degenerative changes but no acute intracranial findings. Will follow up with neurology recommendations. She had echo done today. Cardiology input appreciated. PT recommended GUIDO. She is on metoprolol for hypertension and insulin ss for diabetes. Dr Rozina Henley
--- NOTE | 2016-12-19 15:08 | PN ---
CARDIOLOGY FOLLOWUP DATE: 12/19/2016 SUBJECTIVE: The patient is asymptomatic. PHYSICAL EXAMINATION VITAL SIGNS: Blood pressure is 142/78, heart rates in the 80s. NECK: Negative JVD. HEART: S1 and S2. LUNGS: Without rales. EXTREMITIES: Without edema. LABORATORY DATA: Hemoglobin is 12.4, chemistries reveals a glucose of 146. Troponins are negative IMPRESSION: 1. Status post fall with injury to the right elbow. 2. Diabetes mellitus. 3. Hypertension. 4. Hypercholesterolemia. 5. No evidence for a cardiac cause , no arrhythmias noted. RECOMMENDATIONS: Given these findings, we will discontinue telemetry today. Awaiting for orthopedic intervention. Echocardiogram has been ordered. Audie Madden MD
--- NOTE | 2016-12-19 17:57 | CARD ---
APPROVED REPORT EXAM: Two-dimensional and M-mode echocardiogram with Doppler and color Doppler. INDICATION Congestive Heart Failure 2D DIMENSIONS IVSd1.4 (0.7-1.1cm)LVDd4.4 (3.9-5.9cm) LVOT Diameter2.3 (1.8-2.4cm)PWd1.5 (0.7-1.1cm) LVDs3.2 (2.5-4.0cm)FS (%) 26.9 % LVEF (%)52.8 (>50%) M-Mode DIMENSIONS Aortic Root3.30 (2.2-3.7cm)Aortic Cusp Exc.1.30 (1.5-2.0cm) Aortic Valve AoV Peak Mtzoaoyv776.0cm/sAoV VTI47.5cmAO Peak GR.19mmHg LVOT Peak Zwcadxir84.9cm/sLVOT VTI19.60cmAO Mean GR.10mmHg THOMAS (VMAX)1.08iq9OTS (VTI)1.71cm2 Mitral Valve MV E Xfpgbtpm04.6cm/sMV A Wgwkqpnv37.5cm/sE/A ratio0.9 TDI Lateral E' Peak V6.92cm/sMedial E' Peak V4.97cm/sE/Lateral E'9.9 E/Medial E'13.8 Pulmonary Valve PV Peak Xtingcyg95.6cm/sPV Peak Grad.2mmHg Tricuspid Valve TR Peak Eaazfthz426pq/sRAP CLLMNTEZ98kpIiMV Peak Gr.41mmHg CQXO89lvEf LEFT VENTRICLE The left ventricle is normal size. There is mild concentric left ventricular hypertrophy. The left ventricular function is normal. The left ventricular ejection fraction is within the normal range. There is normal LV segmental wall motion. Transmitral Doppler flow pattern is Grade I-abnormal relaxation pattern. RIGHT VENTRICLE The right ventricle is normal size. There is normal right ventricular wall thickness. RV Systolic function is mildly reduced. AORTIC VALVE The aortic valve is moderately to severely sclerotic. MITRAL VALVE The mitral valve is moderately thickened. TRICUSPID VALVE There is moderate pulmonary hypertension. GREAT VESSELS The aortic root is normal in size. PERICARDIAL EFFUSION There is a trace loculated anterior pericardial effusion. <Conclusion> The left ventricle is normal size. There is mild concentric left ventricular hypertrophy. The left ventricular function is normal. The left ventricular ejection fraction is within the normal range. There is normal LV segmental wall motion. Transmitral Doppler flow pattern is Grade I-abnormal relaxation pattern. RV Systolic function is mildly reduced. There is moderate pulmonary hypertension. The aortic valve is moderately to severely sclerotic.
[2016-12-20] MEDS: Sodium Chloride 0.9% 1,000 ML IV SCH ×2 (03:57→14:42)
[2016-12-20 07:33] LABS: ALBUMIN 3.2 g/dL (3.0-4.8); ALT/SGPT 27 U/L (7-56); AST/SGOT 19 U/L (15-39); BLOOD UREA NITROGEN 11 mg/dL (7-21); CALCIUM 8.6 mg/dL (8.4-10.5); GFR AFRICAN-AMERICAN > 60; GFR NON-AFRICAN AMERICAN > 60
[2016-12-20 07:48] LABS: BASO # 0.02 K/mm3 (0.0-2.0); BASO % 0.3 % (0.0-3.0); EOS # 0.2 (0.0-0.7); EOS % 2.5 % (1.5-5.0); GRAN % 65.4 % (50.0-68.0); HEMOGLOBIN 11.8 gm/dL (12.0-16.0); LYMPH # 1.8 (1.2-3.4); LYMPH % 23.9 % (22.0-35.0); MEAN CELL VOLUME 86.6 fL (80.0-105.0); MEAN CORPUSCULAR HEMOGLOBIN 27.8 pg (25.0-35.0); MEAN CORPUSCULAR HGB CONC 32.1 g/dl (31.0-37.0); MONO # 0.6 (0.1-0.6); MONO % 7.9 % (1.0-6.0); PLATELET COUNT 241 10^3/uL (120.0-450.0); RBC 4.25 10^6/uL (3.5-6.1); RED CELL DISTRIBUTION WIDTH 17.1 % (11.5-14.5); WHITE BLOOD COUNT 7.5 10^3/ul (4.5-11.0)
[2016-12-20] MEDS: Insulin Lispro (humaLOG) LOW Coverage SC SCH ×3 (08:26→21:36)
[2016-12-20] MEDS: Pantoprazole 40 mg EC Tab PO SCH (08:26)
--- NOTE | 2016-12-20 13:00 | PN ---
DATE: 12/20/2016 SUBJECTIVE: The patient resting comfortably and bed awaiting, swelling of an elbow decrease before surgery. PHYSICAL EXAMINATION: VITAL SIGNS: Blood pressure 142/68, heart rates in the 70s. NECK: Negative JVD. LUNGS: Without rales. HEART: S1 and S2. EXTREMITIES: Right arm is fully bandage. LABORATORY DATA: Hemoglobin is 11.8, glucose is 181. Echocardiogram reveals good LV function, with pulmonary hypertension noted, aortic valve sclerosis noted. IMPRESSION: 1. Status post fall. 2. No cardiac evidence for an etiology to her fall. 3. Good left ventricular function. 4. Diabetes mellitus. 5. Pulmonary hypertension. Given these findings, no further cardiac testing is necessary. Awaiting timing for surgery. We will sign off on the case now. Audie Madden MD
--- NOTE | 2016-12-20 17:45 | CP.PCM.PN ---
<SETH FONG - Last Filed: 12/20/16 17:40> Subjective - Date & Time of Evaluation Date of Evaluation: 12/20/16 Time of Evaluation: 10:45 - Subjective Subjective: patient was seen and examined bedside. pt states that she still has pain in the arm when she moves her arm and her knees when she has to be helped up to urinate. Pt denies having a BM yet. Denies cp/palpitations, fevers, sob, n/v/d. Objective - Vital Signs/Intake and Output Vital Signs (last 24 hours): Temp Pulse Resp BP Pulse Ox 98.2 F 76 22 150/68 98 12/20/16 16:49 12/20/16 16:49 12/20/16 16:49 12/20/16 16:49 12/20/16 16:49 Intake and Output: 12/20/16 12/20/16 06:59 18:59 Intake Total 1215 Balance 1215 - Medications Medications: Current Medications Acetaminophen (Tylenol 325mg Tab) 650 mg PO Q6H PRN PRN Reason: Pain, moderate (4-7) Last Admin: 12/20/16 00:25 Dose: 650 mg Aspirin (Ecotrin) 81 mg PO DAILY [facility] Last Admin: 12/20/16 10:35 Dose: 81 mg Atorvastatin Calcium (Lipitor) 20 mg PO DIN [facility] Last Admin: 12/19/16 16:59 Dose: 20 mg Sodium Chloride (Sodium Chloride 0.9%) 1,000 mls @ 75 mls/hr IV .[id number] [facility] Last Admin: 12/20/16 14:42 Dose: 75 mls/hr Insulin Human Lispro (Humalog Low) 0 units SC ACHS [facility] PRN Reason: Protocol Last Admin: 12/20/16 12:11 Dose: 3 units Metoprolol Tartrate (Lopressor) 25 mg PO BID [facility] Last Admin: 12/20/16 10:35 Dose: 25 mg Pantoprazole Sodium (Protonix Ec Tab) 40 mg PO ACB [facility] Last Admin: 12/20/16 08:26 Dose: 40 mg - Labs Labs: 12/20/16 06:30 12/20/16 06:30 PT 10.4 Seconds (9.9-11.8) 12/17/16 16:46 INR 0.96 (0.93-1.08) 12/17/16 16:46 APTT 25.9 Seconds (23.7-30.8) 12/17/16 16:46 - Constitutional Appears: Well, Non-toxic, No Acute Distress - Head Exam Head Exam: ATRAUMATIC, NORMOCEPHALIC - Eye Exam Eye Exam: EOMI, Normal appearance, PERRL. absent: Conjunctival injection, Nystagmus, Periorbital swelling, Scleral icterus - ENT Exam ENT Exam: Mucous Membranes Moist, Normal Exam - Respiratory Exam Respiratory Exam: Clear to Ausculation Bilateral, NORMAL BREATHING PATTERN. absent: Accessory Muscle Use, Chest Wall Tenderness, Rales, Rhonchi, Wheezes, Respiratory Distress, Stridor - Cardiovascular Exam Cardiovascular Exam: RRR, +S1, +S2. absent: Gallop, JVD, Rubs - GI/Abdominal Exam GI & Abdominal Exam: Soft, Normal Bowel Sounds. absent: Distended, Tenderness Additional comments: obese - Extremities Exam Extremities Exam: Full ROM, Normal Inspection, Pedal Edema (+1). absent: Joint Swelling Additional comments: L knee scar from old injury LUE new splint placed today by Dr. Hakeem Moreno going up to half upper arm - Neurological Exam Neurological Exam: Alert, Awake, Oriented x3 - Psychiatric Exam Psychiatric exam: Normal Affect, Normal Mood - Skin Skin Exam: Normal Color, Warm. absent: Abrasion, Cyanosis, Pallor Assessment and Plan - Assessment and Plan (Free Text) Plan: Mrs. Alicea is an 81-year-old woman with multiple medical co-morbidities, including CHF, pulmonary hypertension, hypertension, hyperlipidemia, diabetes, and arthritis, who presented to the ED after suffering a fall resulting in fracture of her right arm. She states that she felt dizzy, light-headed and had a spinning sensation prior to the fall. 1. Syncope - pt transferred to med-surg floor - CT head showed a chronic right cerebellar lacunar infarct - CTA Head/Neck showed Severely turtuous carotid arteries (R>L), and calcification in bifurcation but no stenosis intracranially - MRI Brain showed age-related degenerative changes but no acute intracranial findings - Troponins neg x2 - Neuro consulted, recs appreciated - Cardio consulted and signed off, recs appreciated - PT eval, recommend GUIDO - ECHO: EF 52%; mild LVH; mod pulm htn; AV mod-severely sclerotic 2. Humerus fracture - UE CT showed comminuted fracture of distal humerus and coronoid process - pt neurovascularly intact - R arm is newly splinted - Spoke with Dr. Hakeem Moreno (Ortho) today, plan is still to follow up outpatient w/i 1 week of d/c, recommends PT, when pt d/c scans are on a CD in her chart to be provided to her - pain: tylenol Q6 PRN 3. Hypokalemia, resolved - K 3.8 3. CHF - clinically asymptomatic 4. HTN - 150/68 currently and no dramatic increases - Lopressor 25 BID 5. HLD - TG 108, LDL 102 - Lipitor 20mg 6. DM2 - A1C 9.1 - Humalog 5u today Diet: HHD PPX: PTX Dispo: GUIDO pending insurance authorization; spoke with family members today to relay message Patient was seen, discussed and evaluated with attending, Dr. Kale Fong PGY1 <Rozina Henley - Last Filed: 12/21/16 15:22> Objective - Vital Signs/Intake and Output Vital Signs (last 24 hours): Temp Pulse Resp BP Pulse Ox 99 F 74 20 163/90 H 94 L 12/21/16 07:43 12/21/16 09:34 12/21/16 07:43 12/21/16 09:34 12/21/16 07:43 Intake and Output: 12/21/16 12/21/16 06:59 18:59 Intake Total 720 960 Output Total 700 Balance 20 960 - Medications Medications: Current Medications Acetaminophen (Tylenol 325mg Tab) 650 mg PO Q6H PRN PRN Reason: Pain, moderate (4-7) Last Admin: 12/21/16 08:34 Dose: 650 mg Aspirin (Ecotrin) 81 mg PO DAILY [facility] Last Admin: 12/21/16 09:35 Dose: 81 mg Atorvastatin Calcium (Lipitor) 20 mg PO DIN [facility] Last Admin: 12/20/16 18:36 Dose: 20 mg Sodium Chloride (Sodium Chloride 0.9%) 1,000 mls @ 75 mls/hr IV .[id number] [facility] Last Admin: 12/20/16 14:42 Dose: 75 mls/hr Insulin Human Lispro (Humalog Low) 0 units SC ACHS [facility] PRN Reason: Protocol Last Admin: 12/21/16 12:13 Dose: 5 units Metoprolol Tartrate (Lopressor) 25 mg PO BID [facility] Last Admin: 12/21/16 09:34 Dose: 25 mg Pantoprazole Sodium (Protonix Ec Tab) 40 mg PO ACB [facility] Last Admin: 12/21/16 08:31 Dose: 40 mg - Labs Labs: 12/21/16 07:30 12/21/16 07:30 PT 10.4 Seconds (9.9-11.8) 12/17/16 16:46 INR 0.96 (0.93-1.08) 12/17/16 16:46 APTT 25.9 Seconds (23.7-30.8) 12/17/16 16:46 Attending/Attestation - Attestation I have personally seen and examined this patient.: Yes I have fully participated in the care of the patient.: Yes I have reviewed all pertinent clinical information, including history, physical exam and plan: Yes Notes (Text): I have seen and examined patient at bedside. Agree with the above note with the following additions/ exceptions: Briefly this is 81 year old with past medical history of hypertension, diabetes, CHF, and arthritis who presented with fall/ syncope after feeling dizzy at home. She was found to have right arm fracture and admitted for orthopedics evaluation and syncope workup. CT UE showed comminuted fracture of the distal humerus and coronoid process. Her right arm is in splint and sling. Continue with analgesics prn. Ortho consult appreciated. He recommended outpatient follow up. She was seen by neurology for syncope. Workup so far included CT head which showed chronic right cerebellar lacunar infarct, CT neck which showed severely tortuous carotid arteries (R>L) and calcification in bifurcation but no stenosis intracranially, and MRI brain which showed age-related degenerative changes but no acute intracranial findings. No further recommendations from neurology. Echo revealed EF of 52%, mild LVH, moderate pulmonary hypertension and moderate to severely sclerotic AV. Cardiology input appreciated. PT recommended GUIDO and insurance authorization is pending. Dr Rozina Henley
[2016-12-21 07:44] VITALS: RESP 20
[2016-12-21 07:46] LABS: BASO # 0.01 K/mm3 (0.0-2.0); BASO % 0.1 % (0.0-3.0); EOS # 0.2 (0.0-0.7); EOS % 2.1 % (1.5-5.0); GRAN # 4.77 (1.4-6.5); GRAN % 67.7 % (50.0-68.0); HEMOGLOBIN 11.2 gm/dL (12.0-16.0); LYMPH # 1.6 (1.2-3.4); LYMPH % 22.9 % (22.0-35.0); MEAN CELL VOLUME 84.6 fL (80.0-105.0); MEAN CORPUSCULAR HGB CONC 31.9 g/dl (31.0-37.0); MEAN PLATELET VOLUME 8.6 fl (7.0-11.0); MONO # 0.5 (0.1-0.6); MONO % 7.2 % (1.0-6.0); PLATELET COUNT 225 10^3/uL (120.0-450.0); RBC 4.15 10^6/uL (3.5-6.1); RED CELL DISTRIBUTION WIDTH 16.4 % (11.5-14.5); WHITE BLOOD COUNT 7.1 10^3/ul (4.5-11.0)
[2016-12-21 07:54] LABS: ALBUMIN 3.1 g/dL (3.0-4.8); ALT/SGPT 23 U/L (7-56); AST/SGOT 20 U/L (15-39); BLOOD UREA NITROGEN 9 mg/dL (7-21); CALCIUM 8.6 mg/dL (8.4-10.5); GFR AFRICAN-AMERICAN > 60; GFR NON-AFRICAN AMERICAN > 60
[2016-12-21] MEDS: Insulin Lispro (humaLOG) LOW Coverage SC SCH ×3 (08:31→17:11)
[2016-12-21] MEDS: Pantoprazole 40 mg EC Tab PO SCH (08:31)
[2016-12-21 16:05] VITALS: BP 157/73; PULSE 76; TEMP 98.1; O2SAT 97
--- NOTE | 2016-12-22 02:42 | CP.PCM.DIS ---
<SETH FONG - Last Filed: 12/22/16 01:39> Provider - Provider Date of Admission: 12/17/16 17:38 Attending physician: Rozina Henley MD Primary care physician: Alice Servin MD Time Spent in preparation of Discharge (in minutes): 45 Hospital Course - Lab Results Lab Results: Micro Results 12/19/16 10:30 Stool C. difficile Antigen & Toxin A,B (M - Final Most Recent Lab Values WBC 7.1 10^3/ul (4.5-11.0) 12/21/16 07:30 RBC 4.15 10^6/uL (3.5-6.1) 12/21/16 07:30 Hgb 11.2 gm/dL (12.0-16.0) L 12/21/16 07:30 Hct 35.1 % (36.0-48.0) L 12/21/16 07:30 MCV 84.6 fL (80.0-105.0) 12/21/16 07:30 MCH 27.0 pg (25.0-35.0) 12/21/16 07:30 MCHC 31.9 g/dl (31.0-37.0) 12/21/16 07:30 RDW 16.4 % (11.5-14.5) H 12/21/16 07:30 Plt Count 225 10^3/uL (120.0-450.0) 12/21/16 07:30 MPV 8.6 fl (7.0-11.0) 12/21/16 07:30 Gran % 67.7 % (50.0-68.0) 12/21/16 07:30 Lymph % (Auto) 22.9 % (22.0-35.0) 12/21/16 07:30 [place] % (Auto) 7.2 % (1.0-6.0) H 12/21/16 07:30 Eos % (Auto) 2.1 % (1.5-5.0) 12/21/16 07:30 Baso % (Auto) 0.1 % (0.0-3.0) 12/21/16 07:30 Gran # 4.77 (1.4-6.5) 12/21/16 07:30 Lymph # 1.6 (1.2-3.4) 12/21/16 07:30 [place] # 0.5 (0.1-0.6) 12/21/16 07:30 Eos # 0.2 (0.0-0.7) 12/21/16 07:30 Baso # 0.01 K/mm3 (0.0-2.0) 12/21/16 07:30 PT 10.4 Seconds (9.9-11.8) 12/17/16 16:46 INR 0.96 (0.93-1.08) 12/17/16 16:46 APTT 25.9 Seconds (23.7-30.8) 12/17/16 16:46 Sodium 139 mmol/L (132-148) 12/21/16 07:30 Potassium 3.7 mmol/L (3.6-5.0) 12/21/16 07:30 Chloride 107 mmol/L (95-110) 12/21/16 07:30 Carbon Dioxide 25 mmol/L (21-33) 12/21/16 07:30 Anion Gap 11 (10-20) 12/21/16 07:30 BUN 9 mg/dL (7-21) 12/21/16 07:30 Creatinine 0.6 mg/dL (0.5-1.4) 12/21/16 07:30 Est GFR ( Amer) > 60 12/21/16 07:30 Est GFR (Non-Af Amer) > 60 12/21/16 07:30 POC Glucose (mg/dL) 266 mg/dL (65-110) H 12/21/16 21:18 Random Glucose 210 mg/dL (70-110) H 12/21/16 07:30 Hemoglobin A1c 9.1 % (4.2-6.5) H D 12/18/16 07:00 Calcium 8.6 mg/dL (8.4-10.5) 12/21/16 07:30 Phosphorus 4.1 mg/dL (2.5-4.5) 12/17/16 16:46 Magnesium 2.2 mg/dL (1.7-2.2) 12/17/16 16:46 Total Bilirubin 0.9 mg/dL (0.2-1.3) 12/21/16 07:30 AST 20 U/L (15-39) 12/21/16 07:30 ALT 23 U/L (7-56) 12/21/16 07:30 Alkaline Phosphatase 82 U/L (38-133) 12/21/16 07:30 Lactate Dehydrogenase 466 U/L (333-699) 12/17/16 16:46 Total Creatine Kinase 78 U/L (35-230) 12/17/16 16:46 Troponin I < 0.01 ng/mL 12/18/16 18:00 Total Protein 6.3 g/dL (5.8-8.3) 12/21/16 07:30 Albumin 3.1 g/dL (3.0-4.8) 12/21/16 07:30 Globulin 3.2 gm/dL 12/21/16 07:30 Albumin/Globulin Ratio 1.0 (1.1-1.8) L 12/21/16 07:30 Triglycerides 108 mg/dL (35-160) 12/18/16 07:00 Cholesterol 187 mg/dL (130-200) 12/18/16 07:00 LDL Cholesterol Direct 102 mg/dL (0-129) 12/18/16 07:00 HDL Cholesterol 37 mg/dL (29-60) 12/18/16 07:00 Urine Color Yellow (YELLOW) 12/17/16 16:54 Urine Appearance Clear (CLEAR) 12/17/16 16:54 Urine pH 7.0 (4.7-8.0) 12/17/16 16:54 Ur Specific [place] <= 1.005 (1.005-1.035) 12/17/16 16:54 Urine Protein Negative mg/dL (<30 mg/dL) 12/17/16 16:54 Urine Glucose (UA) >=1000 mg/dL (NEGATIVE) 12/17/16 16:54 Urine Ketones Negative mg/dL (NEGATIVE) 12/17/16 16:54 Urine Blood Negative (NEGATIVE) 12/17/16 16:54 Urine Nitrate Negative (NEGATIVE) 12/17/16 16:54 Urine Bilirubin Negative (NEGATIVE) 12/17/16 16:54 Urine Urobilinogen 0.2 E.U./dL (<1 E.U./dL) 12/17/16 16:54 Ur Leukocyte Esterase Negative Era/uL (NEGATIVE) 12/17/16 16:54 - Hospital Course Hospital Course: Ms. Alicea is an 81 year old Telugu only speaking female with a PMHx of CHF, pulmonary hypertension, hypertension, hyperlipidemia, diabetes, and osteoporosis who presents to the ED for evaluation of feeling dizzy and a subsequent fall onto her right arm. She denies LOC or trauma to the head. Admits that she has experienced dizziness in the past but has never lead to a fall. Also admits to associated dull pain localized to the right upper extremity. Denies fever, chills, chest pain, SOB, abdominal pain, vomiting, diarrhea, constipation, and urinary symptoms. Pt admits to using a walker for assistance and a wheelchair for getting around outside the house (for comfort due to her osteoporosis). Pt lives with family at home. In the ED, EKG showed NSR with LVH. CT head showed generalized atrophy and a hypodensity consistent with chornic lacunar infarct. Xrays of UE showed comminuted displaced R supracondylar fracture. An RUE CT also showed the stated fracture along with more fractures of the coronoid process and radial head. Patient was transferred to the floors for medical management. On the floors, the patient received pain control PRN as well as ASA, Lopressor , Lipitor and ISS. CTA showed severely turtuorous carotid arteries (R>L) and calcified plaques in the bifurcatons without significant stenosis. MRI head showed age-related neuro degenerative changes that were age appropriate. Dr. Hakeem Moreno was contacted and he stated that the patient's fracture can be managed outpatient after she was medically optimized and swelling and inflammation improves. Dr. Hakeem Moreno saw the patient on 12/20 and stated the same thing. PT evaluated the patient and decided that pt is at high risk for fall and that she would benefit from [facility] Ortho, Neuro and Cardio were all consulted and their recs were appreciated greatly in the management of the patient. The patient was accepted into [facility] and insurance authorized it on 12/21. On discharge, the patient denied pain, numbness, tingling in her arm, but the arm does hurt her when she moves. otherwise, the pt denied cp, palpitations, sob , fevers, chills, n/v/d. The patient was sitting in a chair his afternoon comfortably surrounded by family members. To be transported to [facility] and f/u with an orthopedic surgeon to plan for the surgery. - Date & Time of H&P Date of H&P: 12/17/16 Time of H&P: 18:45 Discharge Exam - Head Exam Head Exam: ATRAUMATIC, NORMAL INSPECTION, NORMOCEPHALIC - Eye Exam Eye Exam: EOMI, Normal appearance, PERRL Pupil Exam: NORMAL ACCOMODATION - ENT Exam ENT Exam: Mucous Membranes Moist, Normal Exam - Respiratory Exam Respiratory Exam: Clear to PA & Lateral, NORMAL BREATHING PATTERN, UNREMARKABLE. absent: Accessory Muscle Use, Chest Wall Tenderness, Rales, Rhonchi, Wheezes, Respiratory Distress, Stridor - Cardiovascular Exam Cardiovascular Exam: RRR, +S1, +S2. absent: Bradycardia, Tachycardia, Diastolic murmur, Gallop, Irregular Rhythm, JVD, Rubs, Systolic Murmur - GI/Abdominal Exam GI & Abdominal Exam: Normal Bowel Sounds, Soft. absent: Distended, Guarding, Rebound, Tenderness Additional comments: obese - Extremities Exam Extremities exam: tenderness (around both knees), pedal pulses present Additional comments: pulses present in both arms and feet RUE in long splint with sling on pt is neurovascularly intact in RUE - Neurological Exam Neurological exam: Alert, Oriented x3 - Psychiatric Exam Psychiatric exam: Normal Affect, Normal Mood - Skin Skin Exam: Normal Color, Warm Discharge Plan - Discharge Medications Prescriptions: Acetaminophen [Tylenol 325mg tab] 650 mg PO Q6H PRN #30 tab PRN Reason: Pain, Moderate (4-7) Aspirin [Ecotrin] 81 mg PO DAILY #30 Atorvastatin [Lipitor] 20 mg PO DIN #30 tab Metoprolol Tartrate [Lopressor] 25 mg PO BID #60 tab - Follow Up Plan Condition: FAIR Disposition: REHAB FACILITY/REHAB UNIT Instructions: Cast Care (DC), Arm Fracture in Adults (DC), Elbow Fracture in Adults (DC), Syncope (DC), How to Use a Sling (GEN), Pulmonary Arterial Hypertension (GEN), Dizziness (GEN), Fall Prevention (DC) Additional Instructions: Ms. Alicea, You are being discharged with diagnosis of a comminuted fracture of distal humerus and coronoid process of ulna and radial head. You are being transferred to a rehab facility so you can continue to strengthen and improve your conditioning. At the facility, you should be communicating with an orthopedic surgeon to plan for your surgery. Here are our recommendations: 1. Communicate with an orthopedic surgeon (either Dr. Hakeem Moreno or another surgeon that you prefer) so you can plan your surgery. 2. Please followup with Dr. Servin for medicine adjustments. 3. Meds: Aspirin 81mg Take 1 daily Plavix 75mg Take 1 daily Lipitor 20mg Take 1 daily Lasix 40mg Take twice daily Amaryl 2mg Take 1 daily Cozaar 50mg Take 1 daily Metformin 500mg Take 1 daily Lopressor 25mg Take twice daily Thank you Referrals: Seng Tirado MD [Staff Provider] - Alice Servin MD [Primary Care Provider] - Audie Madden MD [Staff Provider] - <Rozina Henley - Last Filed: 12/22/16 11:52> Provider - Provider Date of Admission: 12/17/16 17:38 Attending physician: Rozina Henley MD Primary care physician: Alice Servin MD Hospital Course - Lab Results Lab Results: Micro Results 12/19/16 10:30 Stool C. difficile Antigen & Toxin A,B (M - Final Most Recent Lab Values WBC 7.1 10^3/ul (4.5-11.0) 12/21/16 07:30 RBC 4.15 10^6/uL (3.5-6.1) 12/21/16 07:30 Hgb 11.2 gm/dL (12.0-16.0) L 12/21/16 07:30 Hct 35.1 % (36.0-48.0) L 12/21/16 07:30 MCV 84.6 fL (80.0-105.0) 12/21/16 07:30 MCH 27.0 pg (25.0-35.0) 12/21/16 07:30 MCHC 31.9 g/dl (31.0-37.0) 12/21/16 07:30 RDW 16.4 % (11.5-14.5) H 12/21/16 07:30 Plt Count 225 10^3/uL (120.0-450.0) 12/21/16 07:30 MPV 8.6 fl (7.0-11.0) 12/21/16 07:30 Gran % 67.7 % (50.0-68.0) 12/21/16 07:30 Lymph % (Auto) 22.9 % (22.0-35.0) 12/21/16 07:30 [place] % (Auto) 7.2 % (1.0-6.0) H 12/21/16 07:30 Eos % (Auto) 2.1 % (1.5-5.0) 12/21/16 07:30 Baso % (Auto) 0.1 % (0.0-3.0) 12/21/16 07:30 Gran # 4.77 (1.4-6.5) 12/21/16 07:30 Lymph # 1.6 (1.2-3.4) 12/21/16 07:30 [place] # 0.5 (0.1-0.6) 12/21/16 07:30 Eos # 0.2 (0.0-0.7) 12/21/16 07:30 Baso # 0.01 K/mm3 (0.0-2.0) 12/21/16 07:30 PT 10.4 Seconds (9.9-11.8) 12/17/16 16:46 INR 0.96 (0.93-1.08) 12/17/16 16:46 APTT 25.9 Seconds (23.7-30.8) 12/17/16 16:46 Sodium 139 mmol/L (132-148) 12/21/16 07:30 Potassium 3.7 mmol/L (3.6-5.0) 12/21/16 07:30 Chloride 107 mmol/L (95-110) 12/21/16 07:30 Carbon Dioxide 25 mmol/L (21-33) 12/21/16 07:30 Anion Gap 11 (10-20) 12/21/16 07:30 BUN 9 mg/dL (7-21) 12/21/16 07:30 Creatinine 0.6 mg/dL (0.5-1.4) 12/21/16 07:30 Est GFR ( Amer) > 60 12/21/16 07:30 Est GFR (Non-Af Amer) > 60 12/21/16 07:30 POC Glucose (mg/dL) 266 mg/dL (65-110) H 12/21/16 21:18 Random Glucose 210 mg/dL (70-110) H 12/21/16 07:30 Hemoglobin A1c 9.1 % (4.2-6.5) H D 12/18/16 07:00 Calcium 8.6 mg/dL (8.4-10.5) 12/21/16 07:30 Phosphorus 4.1 mg/dL (2.5-4.5) 12/17/16 16:46 Magnesium 2.2 mg/dL (1.7-2.2) 12/17/16 16:46 Total Bilirubin 0.9 mg/dL (0.2-1.3) 12/21/16 07:30 AST 20 U/L (15-39) 12/21/16 07:30 ALT 23 U/L (7-56) 12/21/16 07:30 Alkaline Phosphatase 82 U/L (38-133) 12/21/16 07:30 Lactate Dehydrogenase 466 U/L (333-699) 12/17/16 16:46 Total Creatine Kinase 78 U/L (35-230) 12/17/16 16:46 Troponin I < 0.01 ng/mL 12/18/16 18:00 Total Protein 6.3 g/dL (5.8-8.3) 12/21/16 07:30 Albumin 3.1 g/dL (3.0-4.8) 12/21/16 07:30 Globulin 3.2 gm/dL 12/21/16 07:30 Albumin/Globulin Ratio 1.0 (1.1-1.8) L 12/21/16 07:30 Triglycerides 108 mg/dL (35-160) 12/18/16 07:00 Cholesterol 187 mg/dL (130-200) 12/18/16 07:00 LDL Cholesterol Direct 102 mg/dL (0-129) 12/18/16 07:00 HDL Cholesterol 37 mg/dL (29-60) 12/18/16 07:00 Urine Color Yellow (YELLOW) 12/17/16 16:54 Urine Appearance Clear (CLEAR) 12/17/16 16:54 Urine pH 7.0 (4.7-8.0) 12/17/16 16:54 Ur Specific [place] <= 1.005 (1.005-1.035) 12/17/16 16:54 Urine Protein Negative mg/dL (<30 mg/dL) 12/17/16 16:54 Urine Glucose (UA) >=1000 mg/dL (NEGATIVE) 12/17/16 16:54 Urine Ketones Negative mg/dL (NEGATIVE) 12/17/16 16:54 Urine Blood Negative (NEGATIVE) 12/17/16 16:54 Urine Nitrate Negative (NEGATIVE) 12/17/16 16:54 Urine Bilirubin Negative (NEGATIVE) 12/17/16 16:54 Urine Urobilinogen 0.2 E.U./dL (<1 E.U./dL) 12/17/16 16:54 Ur Leukocyte Esterase Negative Era/uL (NEGATIVE) 12/17/16 16:54 Attending/Attestation - Attestation I have personally seen and examined this patient.: Yes I have fully participated in the care of the patient.: Yes I have reviewed all pertinent clinical information, including history, physical exam and plan: Yes Notes (Text): I have seen and examined patient at bedside. Agree with the above note with the following additions/ exceptions: Briefly this is 81 year old with past medical history of hypertension, diabetes, CHF, and arthritis who presented with fall/ syncope after feeling dizzy at home. She was found to have right arm fracture and admitted for orthopedics evaluation and syncope workup. CT UE showed comminuted fracture of the distal humerus and coronoid process. Her right arm is in splint and sling. Continue with analgesics prn. Ortho consult appreciated. He recommended outpatient follow up. She was seen by neurology for syncope. Workup so far included CT head which showed chronic right cerebellar lacunar infarct, CT neck which showed severely tortuous carotid arteries (R>L) and calcification in bifurcation but no stenosis intracranially, and MRI brain which showed age-related degenerative changes but no acute intracranial findings. No further recommendations from neurology. Echo revealed EF of 52%, mild LVH, moderate pulmonary hypertension and moderate to severely sclerotic AV. Cardiology input appreciated. PT recommended [facility] Patient will be discharged today to [facility]. Dr Rozina Henley
== END 2016-12-21 21:45 | DRG 560 ==
LOC: ED 14:44 → ERH 17:38 → 2RSO 22:20 → 5RNO 12-20 13:56
PROVIDERS: ADMIT Internal Medicine; ATTEND Hospitalist
DX: S42.411A Displaced simple supracondylar fracture without intercondylar fracture of right humerus, initial encounter for closed fracture (principal); I50.32 Chronic diastolic (congestive) heart failure; I27.2 Other secondary pulmonary hypertension; I11.0 Hypertensive heart disease with heart failure; E87.6 Hypokalemia; I35.8 Other nonrheumatic aortic valve disorders; W19.XXXA Unspecified fall, initial encounter; E11.9 Type 2 diabetes mellitus without complications; E78.00 Pure hypercholesterolemia, unspecified; E78.5 Hyperlipidemia, unspecified; Z86.73 Personal history of transient ischemic attack (TIA), and cerebral infarction without residual deficits; M19.90 Unspecified osteoarthritis, unspecified site; M81.0 Age-related osteoporosis without current pathological fracture; Z79.899 Other long term (current) drug therapy; H26.9 Unspecified cataract; R42 Dizziness and giddiness; Y92.9 Unspecified place or not applicable; S59.901A Unspecified injury of right elbow, initial encounter; R55 Syncope and collapse